=== PATIENT | female | born 1985 | race Hispanic/Latino ===

== ENCOUNTER 2020-07-22 15:46 | Emergency (ER) | payer OTHER ==
[~2020-07-22] VITALS: Ht 157.5 cm; Wt 77.2 kg
[~2020-07-22 15:46] MED LIST: B12-ACTIVE1 MG PO; CALCIUM75 MG PO; CELEXA40 M1 PO; FISH OIL1000 MG PO; LORAZEPAM0.5 MG PO; PNV PO; TRAZODONE50 MG PO
[2020-07-22] MEDS ORDERED: BETAMETH VAL0.1 % EX (16:32)
[2020-07-22] MEDS ORDERED: HYDROCO/APAP1 TA9 PO (16:32)
[2020-07-22 16:57] VITALS: BP 131/79
== END 2020-07-22 17:02 | disposition home or self-care (01) ==
LOC: ED 15:46
DX: R21 Rash and other nonspecific skin eruption (principal)

== ENCOUNTER 2020-12-01 14:25 | Emergency (ER) | payer OTHER ==
[~2020-12-01] VITALS: Ht 157.5 cm; Wt 80.0 kg
[~2020-12-01 14:25] MED LIST changes: +BETAMETH VAL0.1 % EX; +HYDROCO/APAP1 TA9 PO
[2020-12-01] MEDS ORDERED: BUSPAR15 M1 PO (16:43)
[2020-12-01] MEDS ORDERED: METFORMIN500 M2 PO (16:43)
[2020-12-01] MEDS ORDERED: ADDERALL20 MG PO (16:48)
[2020-12-01] MEDS ORDERED: CELEXA10 MG PO (16:49)
[2020-12-01 19:35] VITALS: BP 119/67
== END 2020-12-01 19:35 | disposition home or self-care (01) ==
LOC: ED 14:25
DX: M25.531 Pain in right wrist (principal); F41.9 Anxiety disorder, unspecified; F32.9 Major depressive disorder, single episode, unspecified

== ENCOUNTER 2022-08-22 20:10 | Emergency (ER) | payer OTHER ==
[~2022-08-22] VITALS: Ht 157.5 cm; Wt 76.0 kg
[~2022-08-22 20:10] MED LIST changes: +ADDERALL20 MG PO; +BUSPAR15 M1 PO; +CELEXA10 MG PO; +METFORMIN500 M2 PO
[2022-08-22 20:24] VITALS: BP 131/96
== END 2022-08-22 23:21 | disposition home or self-care (01) | DRG 951 ==
LOC: ED 20:10 → LWOBS 22:56
DX: Z53.21 Procedure and treatment not carried out due to patient leaving prior to being seen by health care provider (principal)